=== PATIENT | male | born 1950 | race Caucasian/White ===

== ENCOUNTER 2016-08-08 02:49 | Emergency (ER) | payer OTHER, MEDICARE, BC ==
[~2016-08-08] VITALS: Ht 172.7 cm; Wt 80.0 kg
[~2016-08-08 02:49] MED LIST: ASPI81TA82 PO; LEVO.025 PO; PLAV75TA PO; PROT40TA OR; RAMI2.5C29 PO; TOPR25TA2 PO; TRAZ100 PO; VIAG50TA PO; ZOCO40TA PO
[2016-08-08 02:51] VITALS: BP 119/65; PULSE 84; RESP 20; TEMP 97.8; O2SAT 99
[2016-08-08 03:03] VITALS: BP 143/72; PULSE 73; RESP 16; O2SAT 99
[2016-08-08 03:28] VITALS: RESP 16; O2SAT 99
[2016-08-08] MEDS ORDERED: TRAZ100T4 PO (03:36)
[2016-08-08] MEDS ORDERED: VIAG50TA PO (03:36)
[2016-08-08] MEDS ORDERED: LEVO50TA4 PO (03:36)
[2016-08-08] MEDS ORDERED: FAMO1TAB37 PO (03:36)
[2016-08-08] MEDS ORDERED: PANT40TA3 PO (03:36)
[2016-08-08] MEDS ORDERED: ASPI1TAB69 PO (03:36)
[2016-08-08] MEDS ORDERED: OXYC-395 PO (03:36)
[2016-08-08] MEDS ORDERED: GABA600T PO (03:36)
[2016-08-08] MEDS ORDERED: ACYC800T PO (03:36)
[2016-08-08] MEDS ORDERED: SIMV40TA PO (03:36)
[2016-08-08] MEDS ORDERED: PLAV75TA29 PO (03:36)
[2016-08-08] MEDS ORDERED: METO25TA3 PO (03:36)
[2016-08-08] MEDS ORDERED: XARE20TA PO (03:36)
[2016-08-08 04:00] LABS: AUTOMATED NEUTROPHIL # 4.2 TH/MM3 (1.8-7.7); BASOPHIL # 0.1 TH/MM3 (0-0.2); BASOPHIL % 1.1 % (0.0-2.0); EOSINOPHIL # 0.3 TH/MM3 (0-0.4); EOSINOPHIL % 4.5 % (0.0-4.0); HEMATOCRIT 37.9 % (39.0-51.0); HEMO FLAGS DIFF FINAL; LYMPHOCYTE # 1.3 TH/MM3 (1.0-4.8); MEAN CELL VOLUME 89.6 FL (80.0-100.0); MEAN CORPUSCULAR HGB CONC 34.6 % (32.0-36.0); MONO % 9.6 % (0.0-8.0); NEUT % 64.8 % (16.0-70.0); PLATELET COUNT 174 TH/MM3 (150-450); RED BLOOD COUNT 4.23 MIL/MM3 (4.50-5.90); RED CELL DISTRIBUTION WIDTH 15.7 % (11.6-17.2); WHITE BLOOD COUNT 6.4 TH/MM3 (4.0-11.0)
--- NOTE | 2016-08-08 04:01 | RADRPT ---
EXAM DATE/TIME: 08/08/2016 03:31 [facility] COMPARISON: No previous studies available for comparison. INDICATIONS : Trauma. Fell hitting left side of head. RADIATION DOSE: 39.83 CTDIvol (mGy) MEDICAL HISTORY : Cardiovascular disease. Hypertension. Lymphoma. SURGICAL HISTORY : Appendectomy. Cholecystectomy. ENCOUNTER: Initial ACUITY: 1 day PAIN SCALE: 10/10 LOCATION: Left cranial TECHNIQUE: Multiple contiguous axial images were obtained of the head. Using automated exposure control and adj ustment of the mA and/or kV according to patient size, radiation dose was kept as low as reasonably a chievable to obtain optimal diagnostic quality images. FINDINGS: CEREBRUM: The ventricles are normal for age. No evidence of midline shift, mass lesion, hemorrhage or acute in farction. No extra-axial fluid collections are seen. POSTERIOR FOSSA: The cerebellum and brainstem are intact. The 4th ventricle is midline. The cerebellopontine angle i s unremarkable. EXTRACRANIAL: The visualized portion of the orbits is intact. SKULL: The calvaria is intact. No evidence of skull fracture. CONCLUSION: No acute intracranial disease. Harris Daley MD on August 08, 2016 at 3:56 Board Certified Radiologist. This report was verified electronically.
--- NOTE | 2016-08-08 04:08 | RADRPT ---
EXAM DATE/TIME: 08/08/2016 03:37 [facility] COMPARISON: CHEST SINGLE AP, September 29, 2012, 11:44. INDICATIONS : Short of breath after syncopal episode. MEDICAL HISTORY : Hepatitis C. Chemotherapy. SURGICAL HISTORY : Coronary artery stent. Cholecystectomy. Appendectomy. Stem cell transplant. ENCOUNTER: Initial ACUITY: 1 day PAIN SCORE: 0/10 LOCATION: Bilateral chest FINDINGS: A single view of the chest demonstrates the lungs to be symmetrically aerated without evidence of mas s, infiltrate or effusion. The cardiomediastinal contours are unremarkable. Osseous structures are intact. CONCLUSION: No acute disease. Harris Daley MD on August 08, 2016 at 4:07 Board Certified Radiologist. This report was verified electronically.
--- NOTE | 2016-08-08 04:08 | RADRPT ---
EXAM DATE/TIME: 08/08/2016 03:31 [facility] COMPARISON: No previous studies available for comparison. INDICATIONS : Trauma. Fell hitting left side of head. Neck pain. RADIATION DOSE: 21.43 CTDIvol (mGy) MEDICAL HISTORY : Cardiovascular disease. Hypertension. Lymphoma. SURGICAL HISTORY : Appendectomy. Cholecystectomy. ENCOUNTER: Initial ACUITY: 1 day PAIN SCALE: 10/10 LOCATION: Left neck TECHNIQUE: Volumetric scanning of the cervical spine was performed. Multiplanar reconstructions in the sagittal, coronal and oblique axial planes were performed. Using automated exposure control and adjustment o f the mA and/or kV according to patient size, radiation dose was kept as low as reasonably achievable to obtain optimal diagnostic quality images. FINDINGS: VERTEBRAE: Normal vertebral body height. Multilevel posterior disc osteophyte complex. No fracture. Multilevel d egenerative changes. ALIGNMENT: No evidence of subluxation. Facets are well aligned. Craniocervical junction is intact. CONCLUSION: 1. Multilevel degenerative changes. 2. No fracture or subluxation. Harris Daley MD on August 08, 2016 at 4:05 Board Certified Radiologist. This report was verified electronically.
[2016-08-08 04:11] LABS: APTT (PATIENT) 32.6 SEC (24.3-30.1); INTERNATIONAL NORMALIZED RATIO 1.1 RATIO; PROTHROMBIN TIME - PATIENT 12.5 SEC (9.8-11.6)
[2016-08-08 04:18] LABS: ALKALINE PHOSPHATASE 66 U/L (45-117); CREATINE KINASE 106 U/L (39-308); TOTAL BILIRUBIN ADULT 0.2 MG/DL (0.2-1.0)
[2016-08-08 04:20] LABS: ALT (GPT) 23 U/L (12-78); ANION GAP 7 MEQ/L (5-15); AST (GOT) 19 U/L (15-37); BICARBONATE 27.2 MEQ/L (21.0-32.0); BLOOD UREA NITROGEN 21 MG/DL (7-18); CHLORIDE 107 MEQ/L (98-107); GLOMERULAR FILTRATION RATE 47 ML/MIN (>89); POTASSIUM 4.2 MEQ/L (3.5-5.1); SODIUM (NA) 141 MEQ/L (136-145)
[2016-08-08] MEDS ORDERED: MORPHINE SULFATE 4 MG/ML INJ IV PUSH ONE (04:30)
[2016-08-08] MEDS ORDERED: ONDANSETRON HCL 4 MG/2 ML VIAL IV PUSH ONE (04:30)
[2016-08-08] MEDS ORDERED: SODIUM CHLOR 0.9% 1000 ML INJ 1,000 ML IV ONE (04:30)
[2016-08-08 04:31] LABS: CKMB 1.8 NG/ML (0.5-3.6)
--- NOTE | 2016-08-08 04:38 | PD ---
HPI Chief Complaint: Cardiac Complaint Time Seen by Provider: 02:59 Travel History International Travel<30 days: No Contact w/Intl Traveler<30days: No Traveled to known affect area: No History of Present Illness HPI The patient is 66 year old male who presents to the [facility] emergency department with a history of syncopal event that occurred when coming back from the bathroom today. The episode occurred prior to arrival. The patient struck the left side of the back of his head. The patient reports that he is currently on Xarelto due to a history of blood clot in his jugular vein after access was placed for a bone marrow transplant. The patient additionally is on Plavix and a baby aspirin daily due to his history of coronary artery disease with multiple stents being placed. The patient reports that he was diagnosed with large T-cell lymphoma and is been followed at the [facility]. The patient had a bone marrow transplant done in May 2016. The patient reports that he has left shoulder pain that radiating into the left side of his chest. He reports that he has a headache and neck pain. He denies having any new paresthesias or weakness in his extremities. The patient has tingling in his extremities chronically related to a neuropathy from his chemotherapy. The patient denies any history of fever, cough, congestion, shortness of breath, abdominal pain, vomiting, diarrhea, urinary symptoms, or neurologic symptoms. 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 LAST CATH = 2010) Cardiovascular Problems: Yes ([place]) High Cholesterol: Yes Congestive Heart Failure: No Coronary Artery Disease: Yes Diabetes: No Diminished Hearing: No Diverticulitis: Yes Endocrine: No Genitourinary: No Hepatitis: Yes (B&C leveld are now low) Hiatal Hernia: No Hypertension: Yes Immune Disorder: No Musculoskeletal: Yes (numerous herniated discs) Neurologic: No Psychiatric: No Reproductive: No Respiratory: No Myocardial Infarction: Yes (99) Thyroid Disease: Yes (takes meds) Tetanus Vaccination: Unknown Influenza Vaccination: Yes PNEUMOCCOCAL Vaccine (Year): 3 Past Surgical History Narrative Surgical The patient's past surgical history is significant for bone marrow biopsy, history of bone marrow transplant, history of multiple cardiac catheterizations with stents being placed previously numbering between 6 and 7. The patient reports that his last stress test and cardiac catheterization for prostatic 4-5 years ago, history of right rotator cuff repair and acromioplasty, cholecystectomy, appendectomy, bowel surgery related to a perforated diverticuli. Abdominal Surgery: Yes (FOR DIVERTICULITIS) AICD: No Appendectomy: Yes Cardiac Surgery: Yes (STENT PLACEMENT 99; ; 03; 05) Cholecystectomy: Yes Coronary Artery Bypass Graft: No Ear Surgery: No Endocrine Surgery: No Eye Surgery: No Genitourinary Surgery: No Gynecologic Surgery: No Joint Replacement: No Oral Surgery: No Pacemaker: No Thoracic Surgery: No Other Surgery: Yes Family History Family Myocardial Infarction: Yes Social History Alcohol Use: Yes (OCCASIONALLY) Tobacco Use: No (QUIT 25 YEARS AGO) Substance Use: No Allergies-Medications (Allergen,Severity, Reaction): Coded Allergies: Fentanyl (Verified Allergy, Severe, 08/08/16) Imdur (Verified Allergy, Severe, rash,itching, 08/08/16) Thorazine (Verified Allergy, Severe, tongue swelled, 08/08/16) Inderal (Verified Allergy, Intermediate, 08/08/16) Reported Meds & Prescriptions Reported Meds & Active Scripts Active Reported Oxycodone (Oxycodone HCl) 10 Mg Tab 10 Mg PO Q6H PRN Acyclovir 800 Mg Tab 800 Mg PO BID Xarelto (Rivaroxaban) 20 Mg Tab 20 Mg PO QID Viagra (Sildenafil Citrate) 50 Mg Tab 50 Mg PO DAILY PRN Pepcid (Famotidine) 20 Mg Tab 20 Mg PO BID Trazodone (Trazodone HCl) 100 Mg Tab 100 Mg PO HS Levothyroxine (Levothyroxine Sodium) 50 Mcg Tab 50 Mcg PO DAILY Gabapentin 600 Mg Tab 600 Mg PO BID Simvastatin 40 Mg Tab 40 Mg PO HS Pantoprazole (Pantoprazole Sodium) 40 Mg Tab 40 Mg PO DAILY Plavix (Clopidogrel Bisulfate) 75 Mg Tab 75 Mg PO DAILY Aspirin 81 Mg Tabdr 81 Mg PO DAILY Metoprolol Tartrate 25 Mg Tab 12.5 Mg PO BID Review of Systems Except as stated in HPI: all other systems reviewed are Neg General / Constitutional: No: Fever Eyes: No: Visual changes HENT: Positive: Headaches, Neck Pain, No: Rhinorrhea, Congestion, Neck Stiffness Cardiovascular: Positive: Chest Pain or Discomfort, No: Dyspnea on exertion Respiratory: No: Shortness of Breath Gastrointestinal: No: Nausea, Vomiting, Diarrhea, Abdominal Pain, Changes in Bowel Habits, Indigestion, Loss of Appetite Genitourinary: No: Dysuria Musculoskeletal: No: Pain Skin: No Rash Neurologic: No: Weakness, Focal Abnormalities, Change in Mentation, Slurred Speech, Sensory Disturbance Psychiatric: No: Depression Endocrine: No: Polydipsia Hematologic/Lymphatic: No: Easy Bruising Physical Exam Narrative General: The patient is a well-developed well-nourished male, uncomfortable appearing on examination with a reported headache status post syncope. Head and Neck exam: Head is normocephalic, evidence of swelling/superficial hematoma formation along the left occipital scalp. Eyes: EOMI, pupils are equal round and reactive to light. Nose: Midline septum with pink mucous membranes Mouth: Dentition unremarkable. Moist mucus membranes. Posterior oropharynx is not erythematous. No tonsillar hypertrophy. Uvula midline. Airway patent. Neck: No palpable lymphadenopathy. No nuchal rigidity. No thyromegaly. The patient has no spinous process tenderness to palpation, no step-off or crepitus , no erythema or ecchymosis. The patient has left-sided paraspinal cervical muscle tenderness on palpation. The patient is placed in a cervical collar. Cardiovascular: Regular rate and rhythm without murmurs, gallops, or rubs. Lungs: Clear to auscultation bilaterally. No wheezes, rhonchi, or rales. Abdomen: Soft, without tenderness to palpation in all 4 quadrants of the abdomen. No guarding, rebound, or rigidity. Normal bowel sounds are audible. Extremities: No clubbing, cyanosis, or edema. 2+ pulses in all 4 extremities. No calf tenderness on palpation. The patient has no extremity pain or deformity noted, except an area of interest, the left shoulder, the patient reports having tenderness on palpation of the proximal humerus. There is no deformity, step- off or crepitus. The patient has full range of motion although with flexion at the shoulder he has discomfort in the shoulder joint. Back: No spinous process tenderness to palpation. No costovertebral angle tenderness to palpation. Neurologic Exam: Cranial nerves 2-12 were intact on exam. Strength is 5/5 in all 4 extremities. No sensory deficits noted. Skin Exam: No rash noted. Intact skin that is warm and dry. Data Data Last Documented VS Vital Signs Date Time Temp Pulse Resp B/P Pulse Ox O2 Delivery O2 Flow Rate FiO2 08/08/16 03:28 16 99 Room Air 08/08/16 03:06 75 08/08/16 03:03 143/72 08/08/16 02:51 97.8 Orders Electrocardiogram (08/08/16 03:11) Complete Blood Count With Diff (08/08/16 03:11) Comprehensive Metabolic Panel (08/08/16 03:11) Creatine Kinase (Cpk) (08/08/16 03:11) Ckmb (Isoenzyme) Profile (08/08/16 03:11) Troponin I (08/08/16 03:11) B-Type Natriuretic Peptide (08/08/16 03:11) Prothrombin Time / Inr (Pt) (08/08/16 03:11) Act Partial Throm Time (Ptt) (08/08/16 03:11) Magnesium (Mg) (08/08/16 03:11) Chest, Single Ap (08/08/16 03:11) Ct Brain W/O Iv Contrast(Rout) (08/08/16 03:11) Iv Access Insert/Monitor (08/08/16 03:11) Ecg Monitoring (08/08/16 03:11) Oximetry (08/08/16 03:11) Ct Cerv Spine W/O Contrast (08/08/16 03:11) Apply Cervical Collar (08/08/16 03:11) Blood Glucose (08/08/16 03:11) Ice/Cold Pack (08/08/16 03:14) CKMB (08/08/16 03:50) CKMB% (08/08/16 03:50) Morphine Inj (Morphine Inj) (08/08/16 04:30) Ondansetron Inj (Zofran Inj) (08/08/16 04:30) Shoulder, Complete (>2vws) (08/08/16 04:24) Sodium Chlor 0.9% 1000 Ml Inj (Ns 1000 M (08/08/16 04:30) Labs Laboratory Tests Test 08/08/16 03:50 White Blood Count 6.4 TH/MM3 Red Blood Count 4.23 MIL/MM3 Hemoglobin 13.1 GM/DL Hematocrit 37.9 % Mean Corpuscular Volume 89.6 FL Mean Corpuscular Hemoglobin 31.0 PG Mean Corpuscular Hemoglobin 34.6 % Concent Red Cell Distribution Width 15.7 % Platelet Count 174 TH/MM3 Mean Platelet Volume 7.1 FL Neutrophils (%) (Auto) 64.8 % Lymphocytes (%) (Auto) 20.0 % Monocytes (%) (Auto) 9.6 % Eosinophils (%) (Auto) 4.5 % Basophils (%) (Auto) 1.1 % Neutrophils # (Auto) 4.2 TH/MM3 Lymphocytes # (Auto) 1.3 TH/MM3 Monocytes # (Auto) 0.6 TH/MM3 Eosinophils # (Auto) 0.3 TH/MM3 Basophils # (Auto) 0.1 TH/MM3 CBC Comment DIFF FINAL Differential Comment Prothrombin Time 12.5 SEC Prothromb Time International 1.1 RATIO Ratio Activated Partial 32.6 SEC Thromboplast Time Sodium Level 141 MEQ/L Potassium Level 4.2 MEQ/L Chloride Level 107 MEQ/L Carbon Dioxide Level 27.2 MEQ/L Anion Gap 7 MEQ/L Blood Urea Nitrogen 21 MG/DL Creatinine 1.49 MG/DL Estimat Glomerular Filtration 47 ML/MIN Rate Random Glucose 90 MG/DL Calcium Level 8.8 MG/DL Magnesium Level 2.0 MG/DL Total Bilirubin 0.2 MG/DL Aspartate Amino Transf 19 U/L (AST/SGOT) Alanine Aminotransferase 23 U/L (ALT/SGPT) Alkaline Phosphatase 66 U/L Total Creatine Kinase 106 U/L Creatine Kinase MB 1.8 NG/ML Troponin I 0.02 NG/ML B-Type Natriuretic Peptide 41 PG/ML Total Protein 6.6 GM/DL Albumin 3.6 GM/DL MDM Medical Decision Making Medical Screen Exam Complete: Yes Emergency Medical Condition: Yes Medical Record Reviewed: Yes Interpretation(s) Last Impressions Shoulder X-Ray 08/08/16 0424 Signed Impressions: Service Date/Time: Monday, August 08, 2016 04:57 - CONCLUSION: No acute fracture. Harris Daley MD Head CT [id number]/08/[id number] Signed Impressions: Service Date/Time: Monday, August 08, 2016 03:31 - CONCLUSION: No acute intracranial disease. Harris Daley MD Chest X-Ray [id number]/[id number] Signed Impressions: Service Date/Time: Monday, August 08, 2016 03:37 - CONCLUSION: No acute disease. Harris Daley MD Cervical Spine CT [id number] Signed Impressions: Service Date/Time: Monday, August 08, 2016 03:31 - CONCLUSION: 1. Multilevel degenerative changes. 2. No fracture or subluxation. Harris Daley MD Differential Diagnosis Intracranial hemorrhage, versus scalp hematoma, versus cervical spine trauma, versus left shoulder fracture, versus rotator cuff injury, versus musculoskeletal strain. Differential diagnosis for syncope includes orthostasis, versus vasovagal syncope, versus cardiac arrhythmia, versus acute coronary syndrome Narrative Course During the course of the patients emergency department visit, the patients history, examination, and differential diagnosis were reviewed with the patient. The patient had IV access obtained and blood work sent for analysis. The patient was placed on a monitor worker with oximetry and blood pressure monitoring. An EKG was done on arrival. The patient's EKG shows a sinus rhythm heart rate of 71, marked left axis deviation is noted. The patient has no acute ST segment elevation noted. No acute ST segment depression noted. A CT scan of the head, neck was ordered. A chest x-ray and a left shoulder x-ray were ordered. The patient was provided morphine for pain, Zofran for nausea, normal saline a 1 L IV fluid bolus. The patients laboratory studies were reviewed and remarkable for a white count 6.4, hemoglobin 13.1, platelets 174 with monocytes at 9.6, eosinophils 4.5. CMP is remarkable for a BUN of 21, creatinine 1.49, GFR 47. Initial set of cardiac enzymes are negative, BNP is 41, PT 12.5, INR 1.1, PTT 32.6 Radiology studies were reviewed and remarkable for a CT scan of the brain that shows no acute abnormality. CT scan of the C-spine shows Degenerative changes no other acute abnormality. Chest x-ray shows no acute abnormality. Left shoulder x-ray shows no evidence of fracture. The patient's results were discussed with the patient and the patient's . I explained that the patient would be admitted to the hospital for further workup of syncope given his multiple comorbid medical problems and history of cardiac disease. The patient reports that he has an appointment with his panama hat smearer scheduled for 11 AM today. The patient prefers to sign out AGAINST MEDICAL ADVICE to follow- up with his panama hat smearer. I signed to the patient that further testing is indicated including maintenance on telemetry for possible cardiac arrhythmia that caused the syncope, however the patient reports that he believes it is related to taking his, medication, trazodone and feeling lightheaded from this. Again, I explained to the patient that he could have an acute cardiac problem causing his syncope, which could be life-threatening. The patient continues to be sure that he would like to sign out AGAINST MEDICAL ADVICE despite of being aware of this fact. The patient is oriented to person, place, time, and situation. AMA: The risks of leaving against medical advice without further evaluation treatment were discussed with the patient. These risks include cardiac dysfunction, cardiac dysrhythmia, possible heart attack, possible stroke or . The patient indicated understanding of these risks and appeared to have the capacity to make this decision. Diagnosis Primary Impression: Syncope Qualified Code: R55 - Syncope, unspecified syncope type Additional Impressions: Head injury Qualified Code: S09.90XA - Head injury, initial encounter Scalp hematoma Qualified Code: S00.03XA - Scalp hematoma, initial encounter Chest pain Qualified Code: R07.9 - Chest pain, unspecified type Left shoulder pain Qualified Code: M25.512 - Acute pain of left shoulder Referrals: [employer] 1 day Follow-up with her panama hat smearer today as you previously scheduled at 11 AM. Patient Instructions: Chest Pain (ED), General Instructions, Syncope (ED) Disposition: 07 AGAINST MEDICAL ADVICE Condition: Stable Evelyn Zepeda MD Aug 08, 2016 04:38
--- NOTE | 2016-08-08 05:07 | RADRPT ---
EXAM DATE/TIME: 08/08/2016 04:57 [facility] COMPARISON: No previous studies available for comparison. INDICATIONS : Trauma, fall. MEDICAL HISTORY : None. SURGICAL HISTORY : None. ENCOUNTER: Initial ACUITY: 1 day PAIN SCORE: 4/10 LOCATION: Left shoulder. FINDINGS: Multiple view examination of the left shoulder demonstrates no evidence of fracture or dislocation. The glenohumeral and acromioclavicular joints are maintained. There is normal range of motion betwee n internal and external rotation. Bony mineralization is normal. CONCLUSION: No acute fracture. Harris Daley MD on August 08, 2016 at 5:05 Board Certified Radiologist. This report was verified electronically.
--- NOTE | 2016-08-08 17:28 | EKG ---
Date Performed: 08/08/2016 Time Performed: 03:17:44 PTAGE: 66 years EKG: Sinus rhythm MARKED LEFT AXIS DEVIATION Left anterior fasicular block. ABNORMAL ECG PREVIOUS TRACING : 09/29/2012 11.16 DOCTOR: Toi Hunt Interpretating Date/Time 08/08/2016 17:26:19
== END 2016-08-08 06:14 | disposition left against medical advice (07) ==
LOC: NEPC 02:49
DX: R55 Syncope and collapse (principal); S00.03XA Contusion of scalp, initial encounter; R07.9 Chest pain, unspecified; M25.512 Pain in left shoulder; R51 Headache; R20.2 Paresthesia of skin; I44.4 Left anterior fascicular block; R94.31 Abnormal electrocardiogram [ECG] [EKG]; Z79.01 Long term (current) use of anticoagulants; E78.00 Pure hypercholesterolemia, unspecified; I10 Essential (primary) hypertension; I25.2 Old myocardial infarction; W18.30XA Fall on same level, unspecified, initial encounter; Y93.89 Activity, other specified; Y92.009 Unspecified place in unspecified non-institutional (private) residence as the place of occurrence of the external cause
CPT/HCPCS: 70450; 71010; 72125; 73030; 80053; 82550; 82552; 83735; 83880; 84484; 85025; 85610; 85730; 93005; 96374; 96375; 99284; J2270; J2405; J7030; L0150